=== PATIENT | female | born 1950 | race Caucasian/White ===

== ENCOUNTER 2023-03-26 12:20 | Inpatient (IN) | payer OTHER ==
[2023-03-26 13:38] VITALS: BMI 27.6
[2023-03-26] MEDS ORDERED: MAG HYDROX/AL HYDROX/SIMETH 30 ML UNIT-DOSE CUP PO PRN (16:37)
[2023-03-26] MEDS ORDERED: guaiFENesin 600 MG TABLET.ER (FP) PO PRN (16:37)
[2023-03-26] MEDS ORDERED: BENZONATATE 200 MG CAPSULE PO PRN (16:37)
[2023-03-26] MEDS ORDERED: BISMUTH SUBSALICYLATE 524 MG/30 ML PO PRN (16:37)
[2023-03-26] MEDS ORDERED: IBUPROFEN 400 MG TABLET (FP) PO PRN (16:37)
[2023-03-26] MEDS ORDERED: ACETAMINOPHEN 325 MG TABLET (FP) PO PRN (16:37)
[2023-03-26] MEDS ORDERED: BENZOCAINE/MENTHOL (CHLORASEPTIC ) LOZENGE MM PRN (16:37)
[2023-03-26] MEDS ORDERED: DICYCLOMINE HCL 10 MG CAPSULE PO PRN (16:37)
[2023-03-26] MEDS ORDERED: chlordiazePOXIDE HCL 25 MG CAPSULE PO PRN (16:37)
[2023-03-26] MEDS ORDERED: ONDANSETRON *ODT* 4 MG TABLET SL PRN (16:37)
[2023-03-26] MEDS ORDERED: MAGNESIUM HYDROX 2400MG/30ML ORAL SUSPENSION 30 ML CUP PO PRN (16:37)
[2023-03-26] MEDS ORDERED: POLYETHYLENE GLYCOL (HEALTHYLAX) 3350 17 GM PACKET PO PRN (16:37)
[2023-03-26] MEDS ORDERED: LOPERAMIDE HCL 2 MG CAPSULE PO PRN (16:37)
[2023-03-26] MEDS ORDERED: IBUPROFEN 600 MG TABLET (FP) PO PRN (16:37)
[2023-03-26] MEDS ORDERED: chlordiazePOXIDE HCL 25 MG CAPSULE ONE (17:23)
[2023-03-26] MEDS: chlordiazePOXIDE HCL 25 MG CAPSULE PO SCH ×2 (17:25→22:25)
[2023-03-26] MEDS: BACITRACIN 0.9 GM PACKET TP SCH (22:22)
[2023-03-26] MEDS: THIAMINE HCL 100 MG TABLET (FP) PO SCH (22:22)
[2023-03-26] MEDS: MELATONIN 5 MG TABLETS PO SCH (22:22)
[2023-03-27] MEDS: chlordiazePOXIDE HCL 25 MG CAPSULE PO SCH ×4 (05:55→22:25)
[2023-03-27 10:22] LABS: POTASSIUM 3.6 mmol/L (3.5-5.1)
[2023-03-27] MEDS: hydrOXYzine PAMOATE 25 MG CAPSULE (FP) PO PRN (10:22)
[2023-03-27] MEDS: BACITRACIN 0.9 GM PACKET TP SCH ×2 (10:22→22:26)
[2023-03-27] MEDS: PRENATAL VITAMINS W/ FOLIC ACID TABLET (FP) PO SCH (10:22)
[2023-03-27 10:28] LABS: ALBUMIN 1.8 g/dl (3.4-5.0)
[2023-03-27 10:29] LABS: BLOOD UREA NITROGEN 12.3 mg/dL (7-18); CREATININE 0.6 mg/dL (0.55-1.3)
[2023-03-27 10:30] LABS: BILIRUBIN,TOTAL 6.5 mg/dL (0.2-1); HEMATOCRIT 27.1 % (32.4-45.2); HEMOGLOBIN 8.3 GM/dL (10.7-15.3); MCH 27.7 pg (25.7-33.7); MCHC 30.6 g/dl (32.0-36.0); MEAN CELL VOLUME 90.6 fl (80-96); MEAN PLT VOLUME 9.2 fl (7.5-11.1); PLATELET COUNT 129 10^3/uL (134-434); RBC 2.99 M/mm3 (3.60-5.2); RDW 23.1 % (11.6-15.6); TOT PROT 5.9 g/dl (6.4-8.2); WHITE BLOOD COUNT 5.3 K/mm3 (4.0-10.0)
[2023-03-27 10:31] LABS: CALCIUM 7.9 mg/dL (8.5-10.1)
[2023-03-27] MEDS ORDERED: LISINOPRIL 20 MG TABLET PO ONE (12:43)
[2023-03-27] MEDS: THIAMINE HCL 100 MG TABLET (FP) PO SCH (22:24)
[2023-03-27] MEDS: MELATONIN 5 MG TABLETS PO SCH (22:24)
[2023-03-27] MEDS: CALCIUM CARBONATE 650 MG TABLET PO SCH (22:25)
[2023-03-28] MEDS: chlordiazePOXIDE HCL 25 MG CAPSULE PO SCH ×4 (05:35→22:49)
[2023-03-28] MEDS: CALCIUM CARBONATE 650 MG TABLET PO SCH ×2 (10:19→22:43)
[2023-03-28] MEDS: BACITRACIN 0.9 GM PACKET TP SCH ×2 (10:20→22:43)
[2023-03-28] MEDS: hydrOXYzine PAMOATE 25 MG CAPSULE (FP) PO PRN (10:20)
[2023-03-28] MEDS: PRENATAL VITAMINS W/ FOLIC ACID TABLET (FP) PO SCH (10:21)
[2023-03-28] MEDS: amLODIPine BESYLATE 5 MG TABLET (FP) PO SCH (10:21)
[2023-03-28] MEDS: THIAMINE HCL 100 MG TABLET (FP) PO SCH (22:43)
[2023-03-28] MEDS: MELATONIN 5 MG TABLETS PO SCH (22:43)
[2023-03-29] MEDS ORDERED: chlordiazePOXIDE HCL 10 MG CAPSULE PO PRN
[2023-03-29] MEDS: chlordiazePOXIDE HCL 10 MG CAPSULE PO SCH ×4 (05:35→23:14)
[2023-03-29] MEDS: amLODIPine BESYLATE 5 MG TABLET (FP) PO SCH (10:30)
[2023-03-29] MEDS: CALCIUM CARBONATE 650 MG TABLET PO SCH ×2 (10:31→23:13)
[2023-03-29] MEDS: PRENATAL VITAMINS W/ FOLIC ACID TABLET (FP) PO SCH (10:31)
[2023-03-29] MEDS: BACITRACIN 0.9 GM PACKET TP SCH ×2 (10:31→23:13)
[2023-03-29] MEDS: LACTULOSE 20 GM/30 ML UDC (FOR ORAL USE ONLY) PO SCH ×3 (14:51→23:13)
[2023-03-29 21:02] VITALS: BP 136/61; PULSE 88; RESP 17; TEMP 97.8
[2023-03-29] MEDS: MELATONIN 5 MG TABLETS PO SCH (23:14)
[2023-03-29] MEDS: THIAMINE HCL 100 MG TABLET (FP) PO SCH (23:14)
[2023-03-30] MEDS ORDERED: chlordiazePOXIDE HCL 10 MG CAPSULE PO SCH (05:00)
[2023-03-31] MEDS ORDERED: chlordiazePOXIDE HCL 10 MG CAPSULE PO ONE (05:00)
== END 2023-03-29 21:09 | disposition short-term general hospital (02) | DRG 897 ==
LOC: YASAS 12:20 → Y6N 17:49
PROVIDERS: ADMIT Allergy & Immunology; ATTEND Surgery
PROC: HZ2ZZZZ Detoxification Services for Substance Abuse Treatment (ICD-10-PCS; principal; 2023-03-26)
DX: F10.230 Alcohol dependence with withdrawal, uncomplicated (principal); F17.210 Nicotine dependence, cigarettes, uncomplicated; D64.9 Anemia, unspecified; E83.51 Hypocalcemia; I10 Essential (primary) hypertension; R79.89 Other specified abnormal findings of blood chemistry; T07.XXXA Unspecified multiple injuries, initial encounter; S40.812A Abrasion of left upper arm, initial encounter; W18.39XA Other fall on same level, initial encounter; Z91.81 History of falling; Y92.231 Patient bathroom in hospital as the place of occurrence of the external cause; Z91.148 Patient's other noncompliance with medication regimen for other reason
CPT/HCPCS: 36415; 70450-TC; 80053; 82140; 85027; 86780; 87635; 93005; 93010

== ENCOUNTER 2023-03-29 21:21 | Inpatient (IN) | payer OTHER ==
[2023-03-29] MEDS ORDERED: ACETAMINOPHEN 1000 MG/100 ML BAG IVPB ONE (22:16)
[2023-03-29] MEDS ORDERED: ACETAMINOPHEN INJECTION 100 ML IVPB ONE (22:58)
[2023-03-30 00:17] LABS: EOS % 2.2 % (0-4.5); HEMATOCRIT 27.8 % (32.4-45.2); HEMOGLOBIN 8.4 GM/dL (10.7-15.3); LYMPH % 9.5 % (8-40); MCH 27.1 pg (25.7-33.7); MCHC 30.4 g/dl (32.0-36.0); MEAN PLT VOLUME 8.3 fl (7.5-11.1); NEUT % 67.3 % (42.8-82.8); PLATELET COUNT 156 10^3/uL (134-434); RBC 3.12 M/mm3 (3.60-5.2); RDW 23.1 % (11.6-15.6)
[2023-03-30 00:35] LABS: MAGNESIUM 1.4 mg/dL (1.8-2.4)
[2023-03-30 00:37] LABS: ALBUMIN 1.8 g/dl (3.4-5.0); BLOOD UREA NITROGEN 14.6 mg/dL (7-18)
[2023-03-30 00:40] LABS: CREATININE 0.6 mg/dL (0.55-1.3)
[2023-03-30 00:41] LABS: TOT PROT 6.3 g/dl (6.4-8.2)
[2023-03-30 02:10] LABS: INR 2.58 (0.83-1.09); PROTHROMBIN TIME (PATIENT) 29.7 SEC (9.7-13.0)
[2023-03-30 02:12] LABS: ACTIVATED PTT 43.1 SECONDS (25.2-36.5)
[2023-03-30] MEDS ORDERED: FENTANYL CITRATE/PF 50 MCG/ML VIAL ONE (04:25)
[2023-03-30] MEDS ORDERED: SODIUM CHLORIDE 0.9% 500 ML INFUS.BAG IV ONE (06:22)
[2023-03-30] MEDS ORDERED: SODIUM CHLORIDE 500 ML IV STA (07:18)
[2023-03-30] MEDS ORDERED: MAGNESIUM SULF 50% (8.12 MEQ/2 ML-1 GM VIAL) IVPB ONE (07:47)
[2023-03-30] MEDS ORDERED: LORazepam 2 MG/ML SDV VIAL IVPUSH PRN ×2 (07:51→09:47)
[2023-03-30] MEDS ORDERED: MAGNESIUM SULFATE IN WATER 2 GM/50 ML IVPB IVPB ONE (07:58)
[2023-03-30] MEDS ORDERED: FOLIC ACID INJECTION - 1 MG, THIAMINE HCL 100 MG, MULTIVIT INJECTION ADULT 10 ML in SOD... IVPB ONE (09:00)
[2023-03-30] MEDS ORDERED: ENOXAPARIN NA (PORCINE) 40 MG/0.4 ML DISP.SYRIN SQ SCH (10:00)
[2023-03-30] MEDS ORDERED: methylPREDNISolone NA SUCC 40 MG/1 ML VIAL IVPUSH SCH (10:00)
[2023-03-30] MEDS ORDERED: LACTULOSE 20 GM/30 ML UDC (FOR ORAL USE ONLY) PO PRN (10:05)
[2023-03-30] MEDS ORDERED: PHYTONADIONE 10 MG/1 ML AMP IVPB ONE (10:45)
[2023-03-30] MEDS: DEXTROSE 5%-LACTATED RINGERS 1,000 ML IV SCH (11:00)
[2023-03-30] MEDS ORDERED: FOLIC ACID 1 MG TABLET (FP) PO SCH (11:00)
[2023-03-30] MEDS ORDERED: ACETYLCYSTEINE IVPB ONE (11:30)
[2023-03-30] MEDS ORDERED: DEXTROSE 5% IVPB ONE (11:30)
[2023-03-30] MEDS ORDERED: WATER IVPB ONE (11:30)
[2023-03-30] MEDS: THIAMINE HCL 200 MG/2 ML VIAL IVPB SCH (12:17)
[2023-03-30] MEDS ORDERED: PANTOPRAZOLE SODIUM 40 MG/100 ML BAG IVPB ONE (12:21)
[2023-03-30] MEDS ORDERED: THIAMINE HCL 200 MG/2 ML VIAL ONE (12:21)
[2023-03-30] MEDS: PANTOPRAZOLE SODIUM 40 MG VIAL IVPUSH SCH (12:24)
[2023-03-30] MEDS: LACTULOSE 20 GM/30 ML UDC (FOR ORAL USE ONLY) PO SCH ×3 (12:40→22:12)
[2023-03-30] MEDS ORDERED: ACETYLCYSTEINE INJECTION 20% 3,200 MG in DEXTROSE 5%-WATER - 500 ML IVPB ONE (12:40)
[2023-03-30] MEDS ORDERED: PHYTONADIONE 10 MG/1 ML AMP ONE (12:44)
[2023-03-30 15:51] LABS: BASO % 0.5 % (0-2.0); EOS % 1.3 % (0-4.5); HEMATOCRIT 31.9 % (32.4-45.2); HEMOGLOBIN 9.4 GM/dL (10.7-15.3); LYMPH % 5.7 % (8-40); MCH 27.2 pg (25.7-33.7); MCHC 29.5 g/dl (32.0-36.0); MEAN CELL VOLUME 92.3 fl (80-96); MONO % 11.3 % (3.8-10.2); NEUT % 81.2 % (42.8-82.8); PLATELET COUNT 83 10^3/uL (134-434); RBC 3.45 M/mm3 (3.60-5.2); RDW 23.2 % (11.6-15.6); RETICULOCYTES 2.54 % (0.5-1.5); WHITE BLOOD COUNT 6.5 K/mm3 (4.0-10.0)
[2023-03-30 15:55] LABS: INR 3.26 (0.83-1.09); PROTHROMBIN TIME (PATIENT) 37.4 SEC (9.7-13.0)
[2023-03-30 16:07] LABS: POTASSIUM 4.1 mmol/L (3.5-5.1)
[2023-03-30 16:10] LABS: CALCIUM 7.9 mg/dL (8.5-10.1)
[2023-03-30 16:11] LABS: ALBUMIN 1.7 g/dl (3.4-5.0); BLOOD UREA NITROGEN 14.8 mg/dL (7-18); MAGNESIUM 2.1 mg/dL (1.8-2.4)
[2023-03-30 16:13] LABS: BILIRUBIN,DIRECT 5.1 mg/dL (0.0-0.2); CREATININE 0.6 mg/dL (0.55-1.3); PHOSPHOROUS 3.5 mg/dL (2.5-4.9)
[2023-03-30 16:15] LABS: BILIRUBIN,TOTAL 6.9 mg/dL (0.2-1); TOT PROT 5.9 g/dl (6.4-8.2)
[2023-03-30] MEDS ORDERED: ACETYLCYSTEINE INJECTION 20% 6,400 MG in DEXTROSE 5%-WATER - 1,000 ML IVPB ONE (16:45)
[2023-03-30 17:24] LABS: ALLENS TEST POSITIVE; ARTERIAL BLD GAS O2 SATURATION 95.8 % (95-98); ARTERIAL BLOOD GAS BASE EXCESS -1.7 mmol/L (-2-2); ARTERIAL BLOOD GAS PO2 77.6 mmHg (80-100); ARTERIAL BLOOD GAS pH 7.417 (7.350-7.450)
[2023-03-30 17:35] LABS: ANISOCYTOSIS 2+; MACROCYTOSIS 0; OVALOCYTE 1+
[2023-03-31] MEDS: LACTULOSE 20 GM/30 ML UDC (FOR ORAL USE ONLY) PO SCH ×4 (06:50→21:19)
[2023-03-31] MEDS: PANTOPRAZOLE SODIUM 40 MG VIAL IVPUSH SCH (09:22)
[2023-03-31] MEDS: THIAMINE HCL 200 MG/2 ML VIAL IVPB SCH (09:22)
[2023-03-31] MEDS: DEXTROSE 5%-LACTATED RINGERS 1,000 ML IV SCH (09:28)
[2023-03-31] MEDS ORDERED: MULTIVIT INJ. ADULT COMBO WITH VIT K 1 COMBO 10 ML VIAL IV SCH (10:00)
[2023-03-31] MEDS ORDERED: FOLIC ACID 5 MG/1 ML SQ SCH (10:00)
[2023-03-31 10:42] VITALS: BMI 27.8
[2023-03-31 13:19] LABS: BASO % 1.4 % (0-2.0); EOS % 2.1 % (0-4.5); HEMATOCRIT 27.8 % (32.4-45.2); HEMOGLOBIN 8.5 GM/dL (10.7-15.3); LYMPH % 6.4 % (8-40); MCH 27.2 pg (25.7-33.7); MCHC 30.7 g/dl (32.0-36.0); MEAN CELL VOLUME 88.6 fl (80-96); MEAN PLT VOLUME 8.5 fl (7.5-11.1); MONO % 17.1 % (3.8-10.2); PLATELET COUNT 142 10^3/uL (134-434); RBC 3.13 M/mm3 (3.60-5.2); RDW 22.6 % (11.6-15.6); WHITE BLOOD COUNT 6.8 K/mm3 (4.0-10.0)
[2023-03-31 13:28] LABS: INR 2.77 (0.83-1.09); PROTHROMBIN TIME (PATIENT) 31.8 SEC (9.7-13.0)
[2023-03-31 13:43] LABS: POTASSIUM 3.4 mmol/L (3.5-5.1)
[2023-03-31 13:44] LABS: CALCIUM 7.7 mg/dL (8.5-10.1)
[2023-03-31 13:46] LABS: ALBUMIN 1.5 g/dl (3.4-5.0); BLOOD UREA NITROGEN 12.3 mg/dL (7-18); MAGNESIUM 1.7 mg/dL (1.8-2.4)
[2023-03-31 13:48] LABS: CREATININE 0.6 mg/dL (0.55-1.3); PHOSPHOROUS 2.5 mg/dL (2.5-4.9)
[2023-03-31 13:49] LABS: BILIRUBIN,TOTAL 7.9 mg/dL (0.2-1); TOT PROT 5.6 g/dl (6.4-8.2)
[2023-03-31] MEDS ORDERED: POTASSIUM CHLORIDE ORAL LIQUID 20 MEQ/15 ML PO ONE (19:54)
[2023-03-31] MEDS ORDERED: CEFTRIAXONE 1 GM in DEXTROSE 5%-WATER - 50 ML IVPB SCH (20:00)
[2023-03-31 21:00] VITALS: BP 103/59; RESP 20; TEMP 97.8
[2023-03-31] MEDS ORDERED: POLYETHYLENE GLYCOL (HEALTHYLAX) 3350 17 GM PACKET PO SCH (22:00)
[2023-03-31 22:12] VITALS: PULSE 88
== END 2023-03-31 22:40 | disposition short-term general hospital (02) | DRG 433 ==
LOC: JER 21:21 → JERBED 03-30 08:20 → J4W 03-30 21:22
PROVIDERS: ADMIT Internal Medicine; ATTEND Internal Medicine
PROC: 0W9930Z Drainage of Right Pleural Cavity with Drainage Device, Percutaneous Approach (ICD-10-PCS; principal; 2023-03-30)
DX: K70.30 Alcoholic cirrhosis of liver without ascites (principal); D68.9 Coagulation defect, unspecified; J90 Pleural effusion, not elsewhere classified; J94.8 Other specified pleural conditions; F10.20 Alcohol dependence, uncomplicated; D64.9 Anemia, unspecified; E83.42 Hypomagnesemia; K70.10 Alcoholic hepatitis without ascites; F17.210 Nicotine dependence, cigarettes, uncomplicated; K76.82 Hepatic encephalopathy; K81.9 Cholecystitis, unspecified
CPT/HCPCS: 0241U-QW; 36415; 36600; 70450-TC; 71045-TC-FY; 71250-TC; 72125-TC; 72170-TC-FY; 74178-TC; 74181-TC; 76705-TC; 80053; 82105; 82140; 82248; 82550; 82803; 83605; 83690; 83735; 83880; 84100; 84439; 84484; 85025; 85045; 85610; 85730; 86704; 86708; 86803; 86850; 86900; 86901; 87040; 87340; 87517; 87522; 93005; 93010; 93306-TC; 99285-25; Q9967